=== PATIENT | male | born 1940 | race Caucasian/White ===

== ENCOUNTER 2024-06-19 06:16 | Day surgery (SDC) | payer OTHER ==
[2024-06-15 09:26] LABS: Absolute Eosinophils 0.1 K/uL (0-0.5); Absolute Lymphocytes (CBC) 1.3 K/uL (0.7-4.9); Absolute Neutrophil 2.4 K/uL (1.8-8.0); Basophils % 0.4 % (0-1.3); Eosinophils % 1.1 % (0-4.4); Hematocrit 39.8 % (39.6-49.0); Hemoglobin 13.8 g/dL (13.6-17.9); Lymphocytes % 22.8 % (15.3-44.8); MCH 33.6 pg (27.0-35.0); MCHC 34.7 g/dL (32.0-36.0); MCV 96.9 fL (80-100); MPV 7.7 fL (7.6-11.3); Monocytes % 34.3 % (3.3-12.3); Neutrophils % 41.4 % (41.7-73.7); Nucleated Red Blood Cells % 0.1 % (0-0); Platelets 107 thou/uL (152-406); RBC Red Blood Cell Count 4.11 M/uL (4.33-5.43); Red Cell Distribution Width 13.6 % (12.1-15.2)
[2024-06-15 09:37] LABS: PT Prothrombin Time 12.7 SECONDS (10-13.0); PTT, Activated Partial Thromb 32.2 SECONDS (27.2-37.4); Protime INR 1.12
[2024-06-15 09:41] LABS: Albumin 4.4 g/dL (3.4-5.0); Albumin/Globulin Ratio 1.4 (1.1-1.8); Anion Gap 8.8 mEq/L (5.0-15.0); Bilirubin Total 0.9 mg/dL (0.2-1.0); Globulin 3.1 g/dL (2.3-3.5); Potassium 3.8 mEq/L (3.5-5.1); Protein, Total 7.5 g/dL (6.4-8.2)
[2024-06-15 10:17] LABS: Band Neutrophils 1 % (0-1); Blood Morphology Comment NOT SEEN (NOT SEEN); Differential Total Cells Count 100; Eosinophils 2 % (0-3); Lymphocytes 15 % (15-42); Monocytes 43 % (0-10); Platelet Estimate DECR; Segmented Neutrophils 39 % (40-80)
[2024-06-19] MEDS ORDERED: BUPIVACAINE 0.25% PF 30 ML VIAL ONE (06:29)
[2024-06-19] MEDS ORDERED: SUCCINYLCHOLINE 20 MG/ML (10 ML) IV ONE (06:42)
[2024-06-19] MEDS ORDERED: HYDROMORPHONE HCL 0.5 MG/0.5 ML INJ ONE (06:43)
[2024-06-19] MEDS ORDERED: FENTANYL CITR 100 MCG/2 ML ONE (06:44)
[2024-06-19] MEDS ORDERED: ONDANSETRON 4 MG/2 ML VIAL ONE (06:44)
[2024-06-19] MEDS ORDERED: LIDOCAINE 2% MPF 5 ML VIAL ONE (06:44)
[2024-06-19] MEDS ORDERED: propofoL 200 MG/20 ML VIAL IV ONE (06:44)
[2024-06-19] MEDS: Ringers Lactate 1,000 ML IV ONE (06:45)
[2024-06-19] MEDS ORDERED: ROCURONIUM 50 MG/5 ML VIAL IV ONE (06:47)
[2024-06-19] MEDS ORDERED: CLINDAMYCIN 900MG/D5W 900 MG/50 ML IVPB IV ONE (07:05)
[2024-06-19] MEDS: CEFAZOLIN SODIUM 2 GM/VIAL ONE (07:20)
[2024-06-19] MEDS ORDERED: dexAMETHasone 10 MG/ML VIAL ONE (07:23)
[2024-06-19] MEDS ORDERED: EPHEDRINE SULF 50 MG/ML VIAL ONE (07:25)
[2024-06-19] MEDS: VANCOMYCIN 1 GM/VIAL ONE (07:57)
[2024-06-19] MEDS: THROMBIN 5000 UNITS/VIAL TOP ONE (07:57)
[2024-06-19] MEDS: DEPO-MEDROL 40 MG/ML IM ONE (08:04)
[2024-06-19] MEDS ORDERED: Mastisol Adhesive Liq ONE (08:38)
[2024-06-19] MEDS: HYDROCODONE/APAP 7.5/325 MG TAB ONE (10:00)
--- NOTE | 2024-06-19 12:15 | EKG ---
Test Date: 2024-06-15 Test Time: 09:00:33 Crab Backer: NAHEED MEASUREMENT RESULTS: Intervals: Rate: 72 OK: 176 QRSD: 140 QT: 414 QTc: 453 [place]: P: 73 OK: 176 QRS: -69 T: 49 INTERPRETIVE STATEMENTS: Normal sinus rhythm Right bundle branch block Left anterior fascicular block Bifascicular block Abnormal ECG No previous ECG available for comparison Electronically Signed On 06-19-24 12:05:33 CDT by Ricardo Watson
[2024-06-19 13:26] VITALS: O2SAT 96
[2024-06-19 13:28] VITALS: BP 135/70; TEMP 97
== END 2024-06-19 12:10 | disposition home or self-care (01) ==
LOC: OR 06:16
PROVIDERS: ATTEND Orthopaedic Surgery
PROC: 01NB0ZZ Release Lumbar Nerve, Open Approach (ICD-10-PCS; principal; 2024-06-19 07:00)
DX: M48.061 Spinal stenosis, lumbar region without neurogenic claudication (principal); M54.9 Dorsalgia, unspecified
CPT/HCPCS: 93005; 85025; 36415; 85610; 85730; 83036; 80053; 63047; 63048; J2704; J1010; J2003; J3010; J3370; J1100; J1171; J2405; J7120